=== PATIENT | female | born 1940 | race Caucasian/White ===

== ENCOUNTER 2021-01-22 19:16 | Inpatient (IN) ==
[2021-01-22] MEDS ORDERED: ENOXAPARIN 30 MG/0.3 ML SYRINGE SUBCUT STA (19:59)
[2021-01-22] MEDS ORDERED: MAGNESIUM SULF RIDER 2 GM/50 ML PREMIX IV PRN (20:00)
[2021-01-22] MEDS ORDERED: ONDANSETRON 4 MG/2 ML VIAL IV PRN (20:00)
[2021-01-22] MEDS ORDERED: MAGNESIUM SULF RIDER 4 GM/100 ML PREMIX IV PRN (20:00)
[2021-01-22 20:26] LABS: Basophils % 0.6 % (0.0-0.8); Eosinophils # 0.1 10*3/uL (0.0-0.87); Eosinophils % 1.1 % (0.00-10.9); Hematocrit 37.9 VOL% (35.7-47.0); Hemoglobin 12.2 GM/DL (12.0-16.0); Immature Granulocytes % 0.2 %; Immature Granulocytes Absolute 0.01 #; Lymphocytes # 1.4 10*3/uL (1.4-4.0); Lymphocytes % 29.6 % (21.3-54.2); Mean Corpuscular HGB Conc 32.2 GM/DL (32-36); Mean Platelet Volume 12.8 FL (9.6-12.0); Neutrophils % 60.5 % (38.7-73.9); Platelet Count 121 T/CUMM (130-400); Red Blood Count 4.03 MC/CUMM (3.8-5.5); Red Cell Distribution Width 14.3 % (9.3-17.3); White Blood Count 4.8 T/CUMM (4-12)
[2021-01-22 20:36] LABS: PT Patient Result 10.8 SECS (10.5-12.0)
[2021-01-22 20:45] LABS: Calcium 8.8 MG/DL (8.5-10.1); Osmolality,Calculated 281.3 MOS/KG (273-304); Potassium 3.7 MMOL/L (3.5-5.1)
[2021-01-23] MEDS ORDERED: TICAGRELOR 90 MG TABLET PO ONE
[2021-01-23] MEDS ORDERED: ENOXAPARIN 80 MG/0.8 ML SYRINGE SUBCUT ONE (00:01)
[2021-01-23] MEDS ORDERED: METOPROLOL TARTRATE 25 MG TABLET PO ONE (00:07)
[2021-01-23] MEDS ORDERED: ALPRAZolam 0.25 MG TABLET PO PRN (00:09)
[2021-01-23] MEDS ORDERED: MORPHINE 2 MG/1 ML SYRINGE IV PRN (00:10)
[2021-01-23] MEDS: NITROGLYCERIN 2% OINT 1 INCH/GM PACK TOP SCH ×2 (01:45→05:38)
[2021-01-23] MEDS: METOPROLOL TARTRATE 25 MG TABLET PO SCH ×2 (01:45→08:40)
[2021-01-23] MEDS: ASPIRIN CHEW 81 MG TABLET PO SCH ×2 (01:46→08:39)
[2021-01-23 03:57] LABS: Basophils % 0.3 % (0.0-0.8); Eosinophils # 0.1 10*3/uL (0.0-0.87); Eosinophils % 1.2 % (0.00-10.9); Hematocrit 40.6 VOL% (35.7-47.0); Immature Granulocytes % 0.2 %; Immature Granulocytes Absolute 0.01 #; Lymphocytes # 1.9 10*3/uL (1.4-4.0); Lymphocytes % 32.3 % (21.3-54.2); Mean Corpuscular Volume 93.3 FL (87-102); Mean Platelet Volume 12.6 FL (9.6-12.0); Monocytes % 12.7 % (1.7-12.7); Neutrophils % 53.3 % (38.7-73.9); Platelet Count 114 T/CUMM (130-400); Red Blood Count 4.35 MC/CUMM (3.8-5.5); Red Cell Distribution Width 14.3 % (9.3-17.3); White Blood Count 5.8 T/CUMM (4-12)
[2021-01-23 04:18] LABS: Albumin 3.6 G/DL (3.4-5.0); Bilirubin,Total 0.4 MG/DL (0.20-1.00); Calcium 9.3 MG/DL (8.5-10.1); Osmolality,Calculated 282.3 MOS/KG (273-304); Potassium 3.9 MMOL/L (3.5-5.1); Total Protein 7.8 G/DL (6.4-8.2)
[2021-01-23] MEDS: ISOSORBIDE MONONITRATE 30 MG TABLET PO SCH (08:40)
[2021-01-23] MEDS ORDERED: NITROGLYCERIN TRANSLING PRN (09:13)
[2021-01-23] MEDS ORDERED: DICLOFENAC 1% GEL 100 GM TUBE TOP PRN (09:13)
[2021-01-23] MEDS ORDERED: NITROGLYCERIN SL 0.4 MG TABLET SL PRN (09:18)
[2021-01-23] MEDS ORDERED: POTASSIUM CHLORIDE RIDER 10 MEQ/100 ML PREMIX IV PRN (09:36)
[2021-01-23] MEDS ORDERED: MAGNESIUM SULF RIDER 2 GM/50 ML PREMIX IV PRN (09:36)
[2021-01-23] MEDS ORDERED: SODIUM CHLORIDE 0.9% 1,000 ML IV SCH (10:00)
[2021-01-23] MEDS: CYANOCOBALAMIN 500 MCG TABLET PO SCH (11:08)
[2021-01-23] MEDS: FERROUS SULFATE 325 MG TABLET PO SCH (11:08)
[2021-01-23] MEDS: PANTOPRAZOLE 40 MG TABLET PO SCH ×2 (11:08→21:01)
[2021-01-23] MEDS: IPRATROPIUM 0.03% NASAL SPRAY 30 ML BOTTLE BOTH NARES SCH (11:08)
[2021-01-23] MEDS: ACETAMINOPHEN 325 MG TABLET PO SCH ×2 (14:41→16:36)
[2021-01-23] MEDS: PREGABALIN 100 MG CAPSULE PO SCH (14:44)
[2021-01-23] MEDS: SUCRALFATE 1 GM TABLET PO SCH ×2 (14:44→21:00)
[2021-01-23] MEDS: GABAPENTIN 600 MG TABLET PO SCH (14:45)
[2021-01-23] MEDS: FUROSEMIDE 40 MG/4 ML VIAL IV SCH (16:36)
[2021-01-23] MEDS: BUDESONIDE/FORMOTEROL 80-4.5 INHALER 6.9 GM INH SCH (21:00)
[2021-01-23] MEDS: ENOXAPARIN 30 MG/0.3 ML SYRINGE SUBCUT SCH (21:00)
[2021-01-23] MEDS: FLUTICASONE 50 MCG NASAL SPRAY 16 GM BOTTLE BOTH NARES SCH (21:00)
[2021-01-23] MEDS: CYCLOBENZAPRINE 10 MG TABLET PO SCH (21:01)
[2021-01-23] MEDS: MONTELUKAST 10 MG TABLET PO SCH (21:01)
[2021-01-23] MEDS: DULoxetine 30 MG CAPSULE PO SCH (21:01)
[2021-01-23] MEDS: ZALEPLON 5 MG CAPSULE PO PRN (21:01)
[2021-01-23] MEDS: atenoloL 25 MG TABLET PO SCH (21:02)
[2021-01-23] MEDS: AMITRIPTYLINE 25 MG TABLET PO SCH (21:02)
[2021-01-24] MEDS: PREGABALIN 100 MG CAPSULE PO SCH ×4 (01:43→22:44)
[2021-01-24] MEDS: ACETAMINOPHEN 325 MG TABLET PO SCH ×4 (01:43→16:31)
[2021-01-24] MEDS: GABAPENTIN 600 MG TABLET PO SCH ×3 (01:43→16:31)
[2021-01-24] MEDS: SIMVASTATIN 20 MG TABLET PO SCH ×2 (01:44→22:43)
[2021-01-24 05:19] LABS: Basophils % 0.3 % (0.0-0.8); Eosinophils % 0.5 % (0.00-10.9); Hematocrit 40.2 VOL% (35.7-47.0); Hemoglobin 13.5 GM/DL (12.0-16.0); Immature Granulocytes % 0.2 %; Immature Granulocytes Absolute 0.01 #; Lymphocytes # 1.7 10*3/uL (1.4-4.0); Mean Corpuscular HGB Conc 33.6 GM/DL (32-36); Mean Corpuscular Volume 91.4 FL (87-102); Mean Platelet Volume 12.3 FL (9.6-12.0); Monocytes % 13.2 % (1.7-12.7); Neutrophils % 56.8 % (38.7-73.9); Platelet Count 117 T/CUMM (130-400); Red Cell Distribution Width 14.4 % (9.3-17.3)
[2021-01-24 05:34] LABS: Calcium 9.1 MG/DL (8.5-10.1); Osmolality,Calculated 282.3 MOS/KG (273-304); Potassium 3.3 MMOL/L (3.5-5.1)
[2021-01-24] MEDS ORDERED: POTASSIUM CHLORIDE 20 MEQ TABLET PO ONE ×2 (07:10→09:58)
[2021-01-24] MEDS: ALBUTEROL 2.5 MG/3 ML NEB RESP TX SCH (09:25)
[2021-01-24] MEDS: CYCLOBENZAPRINE 10 MG TABLET PO SCH ×2 (09:28→22:44)
[2021-01-24] MEDS: FUROSEMIDE 40 MG/4 ML VIAL IV SCH ×2 (09:28→16:32)
[2021-01-24] MEDS: ASPIRIN EC 81 MG TABLET PO SCH (09:28)
[2021-01-24] MEDS: PANTOPRAZOLE 40 MG TABLET PO SCH ×2 (09:28→22:44)
[2021-01-24] MEDS: FERROUS SULFATE 325 MG TABLET PO SCH (09:28)
[2021-01-24] MEDS: CYANOCOBALAMIN 500 MCG TABLET PO SCH (09:29)
[2021-01-24] MEDS: CALCIUM (CARBONATE) 500 MG TABLET PO SCH (09:30)
[2021-01-24] MEDS: CHOLECALCIFEROL 1,000 UNIT TABLET PO SCH (09:30)
[2021-01-24] MEDS: ISOSORBIDE MONONITRATE 30 MG TABLET PO SCH (09:30)
[2021-01-24] MEDS: atenoloL 25 MG TABLET PO SCH ×2 (09:30→22:43)
[2021-01-24] MEDS: SUCRALFATE 1 GM TABLET PO SCH ×3 (09:30→22:44)
[2021-01-24] MEDS: DULoxetine 30 MG CAPSULE PO SCH ×2 (09:30→22:43)
[2021-01-24] MEDS: ASCORBIC ACID 500 MG TABLET PO SCH (09:30)
[2021-01-24] MEDS: IPRATROPIUM 0.03% NASAL SPRAY 30 ML BOTTLE BOTH NARES SCH (09:31)
[2021-01-24] MEDS: BUDESONIDE/FORMOTEROL 80-4.5 INHALER 6.9 GM INH SCH ×2 (09:31→22:42)
[2021-01-24] MEDS: LOPERAMIDE 2 MG CAPSULE PO PRN ×2 (09:41→22:43)
[2021-01-24] MEDS ORDERED: MAGNESIUM OXIDE 400 MG TABLET PO SCH (21:00)
[2021-01-24] MEDS: FLUTICASONE 50 MCG NASAL SPRAY 16 GM BOTTLE BOTH NARES SCH (22:42)
[2021-01-24] MEDS: ZALEPLON 5 MG CAPSULE PO PRN (22:43)
[2021-01-24] MEDS: ENOXAPARIN 30 MG/0.3 ML SYRINGE SUBCUT SCH (22:43)
[2021-01-24] MEDS: MONTELUKAST 10 MG TABLET PO SCH (22:44)
[2021-01-24] MEDS: AMITRIPTYLINE 25 MG TABLET PO SCH (22:44)
[2021-01-25] MEDS: ACETAMINOPHEN 325 MG TABLET PO SCH ×5 (03:14→20:57)
[2021-01-25] MEDS: GABAPENTIN 600 MG TABLET PO SCH ×4 (03:14→20:56)
[2021-01-25 04:18] LABS: Basophils % 0.5 % (0.0-0.8); Eosinophils # 0.1 10*3/uL (0.0-0.87); Eosinophils % 1.3 % (0.00-10.9); Hematocrit 40.4 VOL% (35.7-47.0); Hemoglobin 13.2 GM/DL (12.0-16.0); Immature Granulocytes % 1.2 %; Immature Granulocytes Absolute 0.07 #; Lymphocytes # 2.1 10*3/uL (1.4-4.0); Lymphocytes % 34.9 % (21.3-54.2); Mean Corpuscular HGB Conc 32.7 GM/DL (32-36); Mean Corpuscular Volume 91.8 FL (87-102); Mean Platelet Volume 12.7 FL (9.6-12.0); Monocytes % 17.4 % (1.7-12.7); Neutrophils % 44.7 % (38.7-73.9); Platelet Count 114 T/CUMM (130-400); Red Cell Distribution Width 14.6 % (9.3-17.3)
[2021-01-25 04:43] LABS: Eosinophils 2 % (0-10); Lymphocytes 37 % (20-55); Platelet Estimate Decreased; Segmented Neutrophils 46 % (50-85); Total Cells Counted 100
[2021-01-25 04:44] LABS: Hypochromasia Slight; Microcytosis Slight
[2021-01-25 04:49] LABS: Calcium 9.8 MG/DL (8.5-10.1); Osmolality,Calculated 284.3 MOS/KG (273-304); Potassium 3.9 MMOL/L (3.5-5.1)
[2021-01-25] MEDS: ALBUTEROL 2.5 MG/3 ML NEB RESP TX SCH (07:11)
[2021-01-25] MEDS: FUROSEMIDE 40 MG/4 ML VIAL IV SCH ×2 (08:03→15:35)
[2021-01-25] MEDS ORDERED: SODIUM CHLORIDE 0.9% 1,000 ML IV SCH (10:00)
[2021-01-25] MEDS: DULoxetine 30 MG CAPSULE PO SCH ×2 (10:19→20:56)
[2021-01-25] MEDS: SUCRALFATE 1 GM TABLET PO SCH ×3 (10:19→20:56)
[2021-01-25] MEDS: FERROUS SULFATE 325 MG TABLET PO SCH (10:20)
[2021-01-25] MEDS: CYCLOBENZAPRINE 10 MG TABLET PO SCH ×2 (10:20→20:55)
[2021-01-25] MEDS: PREGABALIN 100 MG CAPSULE PO SCH ×3 (10:20→20:56)
[2021-01-25] MEDS: CYANOCOBALAMIN 500 MCG TABLET PO SCH (10:21)
[2021-01-25] MEDS: CHOLECALCIFEROL 1,000 UNIT TABLET PO SCH (10:21)
[2021-01-25] MEDS: ASCORBIC ACID 500 MG TABLET PO SCH (10:21)
[2021-01-25] MEDS: CALCIUM (CARBONATE) 500 MG TABLET PO SCH (10:21)
[2021-01-25] MEDS: IPRATROPIUM 0.03% NASAL SPRAY 30 ML BOTTLE BOTH NARES SCH (10:44)
[2021-01-25] MEDS: PANTOPRAZOLE 40 MG TABLET PO SCH ×2 (10:44→20:57)
[2021-01-25] MEDS: ISOSORBIDE MONONITRATE 30 MG TABLET PO SCH (10:44)
[2021-01-25] MEDS: ASPIRIN EC 81 MG TABLET PO SCH (10:44)
[2021-01-25] MEDS: BUDESONIDE/FORMOTEROL 80-4.5 INHALER 6.9 GM INH SCH ×2 (10:45→21:00)
[2021-01-25] MEDS: atenoloL 25 MG TABLET PO SCH ×2 (10:45→20:56)
[2021-01-25] MEDS ORDERED: diphenhydrAMINE CAP 50 MG CAPSULE PO ONE (13:00)
[2021-01-25] MEDS ORDERED: DIAZEPAM 5 MG TABLET PO ONE (13:00)
[2021-01-25] MEDS ORDERED: LIDOCAINE 1% 20 ML VIAL ONE (13:50)
[2021-01-25] MEDS ORDERED: fentaNYL 100 MCG/2 ML VIAL ONE (14:32)
[2021-01-25] MEDS ORDERED: MIDAZOLAM 2 MG/2 ML VIAL ONE (14:32)
[2021-01-25] MEDS ORDERED: HEPARIN 5,000 UNIT/1 ML VIAL ONE (14:39)
[2021-01-25] MEDS ORDERED: SERTRALINE 25 MG TABLET PO ONE (16:11)
[2021-01-25] MEDS: ENOXAPARIN 30 MG/0.3 ML SYRINGE SUBCUT SCH (20:54)
[2021-01-25] MEDS: AMITRIPTYLINE 25 MG TABLET PO SCH (20:55)
[2021-01-25] MEDS: SIMVASTATIN 20 MG TABLET PO SCH (20:55)
[2021-01-25] MEDS: MONTELUKAST 10 MG TABLET PO SCH (20:56)
[2021-01-25] MEDS: FLUTICASONE 50 MCG NASAL SPRAY 16 GM BOTTLE BOTH NARES SCH (21:00)
[2021-01-25] MEDS ORDERED: SERTRALINE 25 MG TABLET PO SCH (21:00)
[2021-01-26 07:18] LABS: Basophils % 0.4 % (0.0-0.8); Eosinophils # 0.1 10*3/uL (0.0-0.87); Eosinophils % 1.6 % (0.00-10.9); Hematocrit 38.6 VOL% (35.7-47.0); Hemoglobin 12.6 GM/DL (12.0-16.0); Immature Granulocytes % 0.2 %; Immature Granulocytes Absolute 0.01 #; Lymphocytes # 1.5 10*3/uL (1.4-4.0); Lymphocytes % 28.2 % (21.3-54.2); Mean Corpuscular HGB Conc 32.6 GM/DL (32-36); Mean Corpuscular Volume 92.1 FL (87-102); Monocytes % 12.1 % (1.7-12.7); Neutrophils % 57.5 % (38.7-73.9); Platelet Count 109 T/CUMM (130-400); Red Blood Count 4.19 MC/CUMM (3.8-5.5); Red Cell Distribution Width 14.6 % (9.3-17.3); White Blood Count 5.1 T/CUMM (4-12)
[2021-01-26] MEDS: ALBUTEROL 2.5 MG/3 ML NEB RESP TX SCH (07:30)
[2021-01-26 07:33] LABS: Calcium 8.4 MG/DL (8.5-10.1); Osmolality,Calculated 277.5 MOS/KG (273-304); Potassium 3.9 MMOL/L (3.5-5.1)
[2021-01-26] MEDS: CYCLOBENZAPRINE 10 MG TABLET PO SCH (09:57)
[2021-01-26] MEDS: DULoxetine 30 MG CAPSULE PO SCH (09:57)
[2021-01-26] MEDS: SUCRALFATE 1 GM TABLET PO SCH (09:57)
[2021-01-26] MEDS: CHOLECALCIFEROL 1,000 UNIT TABLET PO SCH (09:58)
[2021-01-26] MEDS: ASCORBIC ACID 500 MG TABLET PO SCH (09:58)
[2021-01-26] MEDS: PREGABALIN 100 MG CAPSULE PO SCH (09:58)
[2021-01-26] MEDS: CYANOCOBALAMIN 500 MCG TABLET PO SCH (09:58)
[2021-01-26] MEDS: atenoloL 25 MG TABLET PO SCH (09:58)
[2021-01-26] MEDS: ASPIRIN EC 81 MG TABLET PO SCH (09:58)
[2021-01-26] MEDS: CALCIUM (CARBONATE) 500 MG TABLET PO SCH (09:58)
[2021-01-26] MEDS: GABAPENTIN 600 MG TABLET PO SCH (09:59)
[2021-01-26] MEDS: ISOSORBIDE MONONITRATE 30 MG TABLET PO SCH (09:59)
[2021-01-26] MEDS: PANTOPRAZOLE 40 MG TABLET PO SCH (09:59)
[2021-01-26] MEDS: FERROUS SULFATE 325 MG TABLET PO SCH (09:59)
[2021-01-26] MEDS: ACETAMINOPHEN 325 MG TABLET PO SCH (10:00)
[2021-01-26] MEDS: BUDESONIDE/FORMOTEROL 80-4.5 INHALER 6.9 GM INH SCH (10:00)
[2021-01-26] MEDS: IPRATROPIUM 0.03% NASAL SPRAY 30 ML BOTTLE BOTH NARES SCH (10:01)
[2021-01-26 11:51] VITALS: BP 111/54
== END 2021-01-26 15:00 | disposition home or self-care (01) | DRG 286 ==
LOC: N.ED 19:16 → N.EDINP 20:00 → N.TELEN 20:40
PROVIDERS: ADMIT Internal Medicine Cardiovascular Disease; ATTEND Internal Medicine Cardiovascular Disease